=== PATIENT | male | born 1980 | race Caucasian/White ===

== ENCOUNTER 2022-08-09 09:49 | Emergency (ER) | payer OTHER, SELFPAY ==
[2022-08-09 09:52] VITALS: BP 133/75; PULSE 90; RESP 18; TEMP 36.5; O2SAT 98
--- NOTE | 2022-08-09 11:03 | ED.WOUNDLAC ---
HPI - Wound/Laceration General Chief Complaint: Wound/Laceration Stated Complaint: laceration Time Seen by Provider: 08/09/22 09:58 Source: patient Mode of arrival: ambulatory Limitations: no limitations History of Present Illness HPI narrative: Patient is a 42-year-old male who presents ED with report of a laceration to his right lateral wrist. Patient reports he was working on a furnace today and pulled his hand out and accidentally hit the metal furnace door, sustaining a small lateral laceration over his ventral right wrist over the area of the distal ulna. No active bleeding upon my evaluation. No numbness or tingling. Full range of motion of right wrist, nonpainful. Tetanus status up-to-date. Related Data Home Medications Medication Instructions Recorded Confirmed No Home Medications 08/09/22 08/09/22 Allergies Allergy/AdvReac Type Severity Reaction Status Date / Time No Known Allergies Allergy Verified 08/09/22 09:49 Review of Systems Review of Systems: CONSTITUTIONAL: Denies fever, chills, or sweats. SKIN: See HPI. MUSCULOSKELETAL: See HPI. NEUROLOGIC: Denies tingling, numbness, or weakness. All systems reviewed & are unremarkable except as noted in HPI and below Exam Narrative: GENERAL: Well appearing, obese, non-toxic, in no acute distress. HEAD: Normocephalic, atraumatic. NECK: Supple. No adenopathy, no masses. RESPIRATORY: Airway patent, respirations nonlabored. Clear to auscultation bilaterally, no rales, rhonchi, wheezing. CARDIOVASCULAR: Regular rate and rhythm without murmurs, rubs, or gallops. Radial pulses 2+ and equal bilaterally. MUSCULOSKELETAL: Moves all extremities. Strength/ROM intact without gross deformities. Full range of motion of right wrist, no tenderness throughout wrist. SKIN: Warm, dry, normal color. No rashes. Small 1.5 cm laceration, lateral, over distribution of distal ulna, ventral surface of R wrist. No active bleeding. Subcutaneous fat visible, no signs of deeper injury. NEURO: A&O X3. Speech clear. Cranial nerves II-XII grossly intact. Steady gait. No ataxic movements. PSYCHIATRIC: Appropriate mood and affect. Normal interaction. Course Vital Signs Vital signs: Vital Signs Temperature 97.7 F 08/09/22 09:52 Pulse Rate 90 08/09/22 09:52 Respiratory Rate 18 06/15/23 09:52 Blood Pressure 133/75 08/09/22 09:52 Pulse Oximetry 98 08/09/22 09:52 Oxygen Delivery Room Air 08/09/22 09:52 Temperature 97.7 F 08/09/22 09:52 Pulse Rate 90 08/09/22 09:52 Respiratory Rate 18 08/09/22 09:52 Blood Pressure 133/75 08/09/22 09:52 Pulse Oximetry 98 08/09/22 09:52 Oxygen Delivery Room Air 08/09/22 09:52 Procedures Laceration Laceration 1: Date: 08/09/22 Time: 11:00 Site: upper extremity (ventral wrist) Side (If applicable): right Size (cm): 1.5 Description: linear Depth: simple, single layer Local Anesthetic: lidocaine 1% Amount of anesthesia used (mL): 5 Pre-repair: wound explored and irrigated ====== Skin Level ====== Skin layer closed with: nylon Size (cm): 4-0 Number of sutures: 3 Technique: simple, interrupted ====== Subcutaneous Layer ====== ====== Muscle Layer ====== ====== Tendon Layer ====== MDM - Wound/Laceration MDM Narrative Medical decision making narrative: Patient presented to ED with laceration to ventral right wrist, over distal ulna. Neurovascularly intact. Strong radial pulses. Full nonpainful range of motion of right wrist, no indication for imaging at this time. Laceration was irrigated and repaired without complications. Patient given wound care instructions and reasons to return to the ED. Tetanus already up-to-date. He agrees with plan. Medical Records Attestation: I reviewed the patient's medical records. Discharge Plan Discharge Clinical Impression: Laceration of right wris
[2022-08-09] MEDS: LIDOCAINE HCL 1% LOCAL INJ 10 ML VIAL 5 ML INFILTRATE (11:11)
--- NOTE | 2022-08-09 11:13 | PC.NURSE ---
Report received from Angelia EM
== END 2022-08-09 11:35 | disposition home or self-care (01) ==
PROVIDERS: Emergency Provider Physician Assistant
DX: S61.511A Laceration without foreign body of right wrist, initial encounter (principal); W26.8XXA Contact with other sharp object(s), not elsewhere classified, initial encounter
CPT/HCPCS: 12001; 99282